=== PATIENT | male | born 1990 | race Hispanic/Latino ===

== ENCOUNTER 2016-07-10 13:11 | Emergency (ER) | payer SELFPAY ==
[2016-07-10 13:32] VITALS: TEMP 99.4
[2016-07-10] MEDS ORDERED: diphenhydrAMINE HCL 12.5 MG/5 ML UD PO ONE (13:48)
[2016-07-10] MEDS ORDERED: methylPREDNISolone SODIUM SUC 125 MG/2 ML VIAL IM ONE (13:48)
--- NOTE | 2016-07-10 14:40 | ED.PDOC ---
History of Present Illness - General Chief Complaint: Fever Stated Complaint: fever, rash Time Seen by Provider: 07/10/16 13:42 Source: patient, RN notes reviewed, Vital Signs reviewed Exam Limitations: no limitations - History of Present Illness Initial Comments: Patient started with a generalized, itchy rash with hives and throat itching yesterday. He took multiple showers which seemed to help but today the itching became unbearable so he came in. He did have a fever to 100.8 last night. No SOB or difficulty breathing. No lip, tongue or throat swelling. No known allergies. No new exposures. Timing/Duration: 24 hours Severity: moderate Improving Factors: cold therapy Worsening Factors: nothing Associated Symptoms: fever/chills, rash Allergies/Adverse Reactions: Allergies NO KNOWN ALLERGY Allergy (Verified 07/10/16 13:32) Home Medications: Ambulatory Orders methylPREDNISolone TAB [Medrol Tab] 4 mg PO DAILY #1 pack 07/10/16 Review of Systems - Review of Systems Constitutional: States: fever EENTM: States: other - itchy throat last night, now resolved. Denies: nose congestion, throat pain, throat swelling, mouth swelling Respiratory: States: no symptoms reported. Denies: cough, short of breath, wheezing Cardiology: States: no symptoms reported Gastrointestinal/Abdominal: States: no symptoms reported Musculoskeletal: States: no symptoms reported Skin: States: rash - Hives - generalized Neurological: States: no symptoms reported Past Medical History (General) - Patient Medical History Surgical History: no surgical history - Vaccination History Hx Tetanus, Diphtheria Vaccination: Yes Hx Influenza Vaccination: No - Social History Hx Tobacco Use: No Hx Alcohol Use: Yes - 6pk beer daily Hx Substance Use: No Hx Substance Use Treatment: No Hx Depression: No - Activities of Daily Living Hospice Agency (if applicable):: None - Female History Patient is a Female of Child Bearing Age (10 -59 yrs old): No Patient : No Family Medical History - Family History Mother Family History: Unknown Physical Exam - Physical Exam General Appearance: Alert, Comfortable, No apparent distress, Well Developed, Well Groomed, Well Hydrated, Well Nourished Ears, Nose, Throat: hearing grossly normal, normal ENT inspection, normal pharynx Neck: non-tender, full range of motion, supple, normal inspection Respiratory: lungs clear, normal breath sounds, no respiratory distress, no accessory muscle use Cardiovascular/Chest: regular rate, rhythm, no gallop, no murmur Extremity: normal range of motion, normal inspection Neurologic: alert, normal mood/affect, oriented x 3 Skin Exam: rash - urticaria over trunk and extremities Comments: Vital Signs - 24 hr 07/10/16 13:18 Temperature 99.4 F Pulse Rate [ 111 H pulse ox] Respiratory 20 Rate Blood Pressure 128/82 [Left Arm] O2 Sat by Pulse 98 Oximetry Progress - Progress Progress: 07/10/16 14:42 Itching is resolved after Benadryl and Solu-medrol Departure - Departure Clinical Impression: Allergic reaction Qualifiers: Encounter type: initial encounter Qualified Code(s): T78.40XA - Allergy, unspecified, initial encounter Time of Disposition: 14:43 Disposition: Discharge to Home or Self Care Condition: Good Departure Forms: ED Discharge - Pt. Copy, Patient Portal Self Enrollment Instructions: DI for General Allergic Reactions Diet: resume usual diet Activity: increase activity as tolerated Prescriptions: methylPREDNISolone TAB [Medrol Tab] 4 mg PO DAILY #1 pack Home Medications: Ambulatory Orders methylPREDNISolone TAB [Medrol Tab] 4 mg PO DAILY #1 pack 07/10/16 Additional Instructions: Benadryl every 6 hours as needed Schedule follow up for allergy testing with your PCP
[2016-07-10 14:52] VITALS: BP 121/88; O2SAT 97
== END 2016-07-10 14:52 | disposition home or self-care (01) ==
LOC: ER 13:11
DX: T78.40XA Allergy, unspecified, initial encounter (principal); X58.XXXA Exposure to other specified factors, initial encounter
CPT/HCPCS: J2930; Q0163